=== PATIENT | male | born 1950 | race Caucasian/White ===

== ENCOUNTER 2017-03-23 13:04 | Emergency (ER) | payer OTHER ==
[~2017-03-23] VITALS: Ht 172.7 cm; Wt 94.3 kg
[2017-03-23 15:38] VITALS: BP 163/112
== END 2017-03-23 15:38 | disposition home or self-care (01) ==
LOC: ED 13:04
DX: S61.052A Open bite of left thumb without damage to nail, initial encounter (principal); I10 Essential (primary) hypertension; N40.0 Benign prostatic hyperplasia without lower urinary tract symptoms; Z87.438 Personal history of other diseases of male genital organs; W53.11XA Bitten by rat, initial encounter; Y93.89 Activity, other specified; Y92.89 Other specified places as the place of occurrence of the external cause; Y99.8 Other external cause status
CPT/HCPCS: 90715